=== PATIENT | female | born 1950 | race Caucasian/White ===

== ENCOUNTER → 2016-09-08 | Outpatient (CLI) | payer MEDICARE, OTHER ==
[~2016-09-08] MED LIST: ANTI INFLAMATORY; ANTIVERT 25MG25 MG PO; ASPIRIN 32325 MG/TAB PO; ASPIRIN 81M81 MG/TA2 PO; ASPIRIN E.C. 8181 MG PO; ATIVAN 1MG T1 MG/TAB PO; CELEBREX 200MG200 MG PO; CHANTIX1 TAB PO; COLACE 100100 MG/CAP PO; DICLOFENAC; FERROUS SU325 MG/TAB PO; FLEXERIL 1010 MG/TAB PO; FLONASE NASAL S16 GM NS; FOLIC ACID 40400 MCG PO; FOLIC ACID PO; LORTAB 5/500 501 TAB PO; MASON NATURAL2000 IU PO; MILK OF MA400 MG/52 PO; MUCINEX D 600 M1 TER PO; MUCINEX DM 30 M1 TE1 PO; MULTIPLE VITAMI1 TAB PO; MVI PO; NASONEX SPRAY17 GM NS; NICODERM C21 MG/PATC TOP; NORCO 325 MG-7.1 TAB PO; OXYCODONE HCL5 MG PO; PAXIL 20MG20 MG PO; PAXIL20 MG PO; PLAVIX 75MG TAB75 MG PO; PREMARIN 1.251.25 MG PO; PROAIR HFA0.09 MG/AC IH; ROXICODONE 55 MG/TAB PO; SENOKOT8.6 MG PO; TESSALON PERLE100 MG PO; VESICARE 5MG5 MG PO; VITAMIN C BUFF500 MG PO; VITAMIN C500 MG PO; VITAMIN D1000 IU PO; VOLTAREN 75 DR75 MG PO; VOLTAREN SR25 MG/TAB PO; ZOFRAN 4MG T4 MG/TAB PO; ZORVOLEX35 MG PO; ZYRTEC 10MG
== END ==
LOC: COL.RAD 08:34
DX: M25.552 Pain in left hip (principal); M79.605 Pain in left leg
CPT/HCPCS: J3301; Q9967

== ENCOUNTER → 2016-10-22 | Outpatient (CLI) | payer MEDICARE, OTHER | LOC: MC.RAD 09:47 | DX: Z12.31 Encounter for screening mammogram for malignant neoplasm of breast (principal) ==

== ENCOUNTER 2017-02-17 10:34 | Inpatient (IN) | payer MEDICARE, OTHER ==
[~2017-02-17] VITALS: Ht 160 cm; Wt 80.4 kg
[~2017-02-17 10:34] MED LIST changes: -ASPIRIN 81M81 MG/TA2 PO; -ASPIRIN E.C. 8181 MG PO; -FLONASE NASAL S16 GM NS; -MASON NATURAL2000 IU PO; -NASONEX SPRAY17 GM NS; -PLAVIX 75MG TAB75 MG PO; -PROAIR HFA0.09 MG/AC IH; -VOLTAREN SR25 MG/TAB PO
[2017-03-20] MEDS ORDERED: MASON NATURAL2000 IU PO (15:54)
[2017-03-20] MEDS ORDERED: ASPIRIN E.C. 8181 MG PO (15:54)
[2017-03-20] MEDS ORDERED: VOLTAREN SR25 MG/TAB PO (15:55)
[2017-03-20] MEDS ORDERED: VOLTAREN 75 DR75 MG PO (15:55)
[2017-03-20] MEDS ORDERED: NASONEX SPRAY17 GM NS (15:56)
[2017-03-20] MEDS ORDERED: PROAIR HFA0.09 MG/AC IH (15:56)
[2017-03-20] MEDS ORDERED: FLONASE NASAL S16 GM NS (15:56)
[2017-03-20] MEDS ORDERED: PLAVIX 75MG TAB75 MG PO (15:57)
[2017-03-24] VITALS (12 sets, daily range): BP systolic 94–123; BP diastolic 50–74; PULSE 73–102; TEMP 98.2–98.5
[2017-03-24] MEDS ORDERED: VITAMIN C500 MG PO (07:43)
[2017-03-24] MEDS ORDERED: FERROUS SU325 MG/TAB PO (07:43)
[2017-03-24] MEDS ORDERED: FOLIC ACID 40400 MCG PO (07:44)
[2017-03-25 04:40] VITALS: BP 120/70; PULSE 88; TEMP 98.4
[2017-03-25 05:29] LABS: HEMATOCRIT 32.1 % (37.0-47.0); HEMOGLOBIN 10.7 g/dl (12.5-16.0)
[2017-03-25 07:32] VITALS: BP 117/90; PULSE 92; TEMP 98.7
[2017-03-25 11:37] VITALS: BP 135/55; PULSE 89; TEMP 97.9
[2017-03-25] MEDS ORDERED: ASPIRIN 32325 MG/TAB PO (14:36)
[2017-03-25] MEDS ORDERED: ROXICODONE 55 MG/TAB PO (14:36)
[2017-03-25] MEDS ORDERED: NORCO 325 MG-7.1 TAB PO (14:37)
[2017-03-25] MEDS ORDERED: PLAVIX 75MG TAB75 MG PO (14:41)
== END 2017-03-25 15:19 | disposition home or self-care (01) | DRG 468 ==
LOC: JCC 03-24 06:35
PROVIDERS: Orthopaedic Surgery
PROC: 0SPS0JZ Removal of Synthetic Substitute from Left Hip Joint, Femoral Surface, Open Approach (ICD-10-PCS; 2017-03-24)
PROC: 0SRS0JA Replacement of Left Hip Joint, Femoral Surface with Synthetic Substitute, Uncemented, Open Approach (ICD-10-PCS; principal; 2017-03-24 11:45)
DX: T84.84XA Pain due to internal orthopedic prosthetic devices, implants and grafts, initial encounter (principal); T84.89XA Other specified complication of internal orthopedic prosthetic devices, implants and grafts, initial encounter; Z96.642 Presence of left artificial hip joint; Z85.72 Personal history of non-Hodgkin lymphomas
CPT/HCPCS: A4315; A9284; C1776; J0360; J0690; J1100; J2250; J2270; J2405; J2704; J3010; J7120

== ENCOUNTER → 2017-03-12 | Outpatient (CLI) | payer MEDICARE, OTHER ==
[~2017-03-12] MED LIST changes: +ASPIRIN 81M81 MG/TA2 PO; +ASPIRIN E.C. 8181 MG PO; +FLONASE NASAL S16 GM NS; +MASON NATURAL2000 IU PO; +NASONEX SPRAY17 GM NS; +PLAVIX 75MG TAB75 MG PO; +PROAIR HFA0.09 MG/AC IH; +VOLTAREN SR25 MG/TAB PO
[2017-03-12 10:57] LABS: HIV 1/2 Antibodies Non-Reactive; HIV-1p24 Antigen Non-Reactive
== END ==
LOC: COL.LAB 08:59
PROVIDERS: Orthopaedic Surgery
DX: Z01.812 Encounter for preprocedural laboratory examination (principal); Z96.642 Presence of left artificial hip joint

== ENCOUNTER 2017-04-05 19:14 | Emergency (ER) | payer MEDICARE, OTHER ==
[~2017-04-05] VITALS: Ht 157.5 cm; Wt 69.5 kg
[~2017-04-05 19:14] MED LIST changes: -ASPIRIN 81M81 MG/TA2 PO
[2017-04-05 19:18] VITALS: TEMP 98
[2017-04-05 20:00] LABS: BASO % 0.4 % (0.0-2.0); EOS # 0.2 (0.0-0.7); EOS % 2.3 % (0-4.0); GRAN # 6.4 (1.4-6.5); LYMPH # 2.5 (1.2-3.4); LYMPH % 25.2 % (20.0-51.0); MEAN CELL VOLUME 94 fl (80.0-100.0); MEAN CORPUSCULAR HGB CONC 33 g/dl (33.0-37.0); MONO # 0.6 (0.1-0.6); MONO % 6.4 % (1.7-9.3); PLATELET COUNT 386 K/mm3 (130-400); RED BLOOD COUNT 3.38 M/mm3 (4.10-5.30); WHITE BLOOD COUNT 9.9 K/mm3 (4.8-10.8)
[2017-04-05 20:04] LABS: HEMATOCRIT 31.8 % (37.0-47.0); HEMOGLOBIN 10.5 g/dl (12.5-16.0); MEAN CORPUSCULAR HEMOGLOBIN 31 pg (27.0-31.0)
[2017-04-05 20:13] LABS: ALBUMIN 3.9 gm/dL (3.5-5.0); BILIRUBIN,TOTAL 0.5 mg/dL (0.0-1.0); C-REACTIVE PROTEIN 2.5 mg/dL (0.0-0.9); CALCIUM 8.9 mg/dL (8.4-10.2); CREATININE, serum 0.7 mg/dL (0.52-1.25); POTASSIUM 4.3 mmol/L (3.4-5.0); TOTAL PROTEIN 6.5 gm/dL (6.4-8.2)
[2017-04-05 20:24] LABS: ERYTHROCYTE SEDIMENTATION RATE 29 mm/hr (0-30)
[2017-04-05] MEDS ORDERED: ASPIRIN 81M81 MG/TA2 PO (21:00)
[2017-04-05 22:29] VITALS: BP 116/65; PULSE 87
== END 2017-04-05 22:34 | disposition home or self-care (01) ==
LOC: COL.ER 19:14
PROVIDERS: Emergency Medicine
DX: G89.18 Other acute postprocedural pain (principal); M62.838 Other muscle spasm; Z85.72 Personal history of non-Hodgkin lymphomas; Z79.82 Long term (current) use of aspirin
CPT/HCPCS: J1170; J1885

== ENCOUNTER → 2017-10-21 | Outpatient (CLI) | payer MEDICARE, OTHER ==
[~2017-10-21] MED LIST changes: +ASPIRIN 81M81 MG/TA2 PO; +ZITHROMAX Z PA250 MG PO
[2017-10-21 11:34] LABS: HIV 1/2 Antibodies Non-Reactive; HIV-1p24 Antigen Non-Reactive
[2017-10-22 03:41] LABS: HEPATITIS B SURFACE ANTIBODY <2.0 (())
== END ==
LOC: COL.LAB 09:58
PROVIDERS: Orthopaedic Surgery
DX: Z01.812 Encounter for preprocedural laboratory examination (principal); Z96.642 Presence of left artificial hip joint

== ENCOUNTER → 2017-11-13 | Outpatient (CLI) | payer MEDICARE, OTHER ==
[~2017-11-13] MED LIST changes: +ALLEGRA 180MG180 MG PO; +ASPI325T6 PO; +DULCOLAX STOOL100 MG PO; +ESTRACE0.5 MG PO; +VENTOLIN0.09 MG IH; +WELLBUTRIN SR150 M1 PO
== END ==
LOC: MC.RAD 10-30 08:20
DX: Z12.31 Encounter for screening mammogram for malignant neoplasm of breast (principal)

== ENCOUNTER 2018-01-22 09:54 | Emergency (ER) | payer MEDICARE, OTHER ==
[~2018-01-22] VITALS: Ht 160 cm; Wt 68.2 kg
[2018-01-22 13:05] VITALS: BP 123/77; PULSE 75; TEMP 97.2
== END 2018-01-22 13:05 | disposition home or self-care (01) ==
LOC: COL.ER 09:54
DX: M24.452 Recurrent dislocation, left hip (principal); Z79.02 Long term (current) use of antithrombotics/antiplatelets; Z79.82 Long term (current) use of aspirin; Z79.51 Long term (current) use of inhaled steroids; X50.0XXA Overexertion from strenuous movement or load, initial encounter
CPT/HCPCS: J1170; J1885; J2405; J2704; J3010; J7120

== ENCOUNTER 2018-03-18 13:36 | Emergency (ER) | payer MEDICARE, OTHER ==
[~2018-03-18] VITALS: Ht 160 cm; Wt 68.2 kg
[2018-03-18 13:39] VITALS: TEMP 96.8
[2018-03-18 14:07] LABS: BASO % 0.4 % (0.0-2.0); EOS # 0.2 (0.0-0.7); EOS % 2.8 % (0-4.0); GRAN # 3.8 (1.4-6.5); GRAN % 56.4 % (42.2-75.2); HEMOGLOBIN 10.9 g/dl (12.5-16.0); LYMPH # 2.2 (1.2-3.4); LYMPH % 32.7 % (20.0-51.0); MEAN CELL VOLUME 86 fl (80.0-100.0); MEAN CORPUSCULAR HEMOGLOBIN 27 pg (27.0-31.0); MEAN CORPUSCULAR HGB CONC 32 g/dl (33.0-37.0); MEAN PLATELET VOLUME 9.5 fl (7.4-10.4); MONO # 0.5 (0.1-0.6); MONO % 7.6 % (1.7-9.3); PLATELET COUNT 273 K/mm3 (130-400); RED BLOOD COUNT 3.98 M/mm3 (4.10-5.30); REDCELL DISTRIBUTION WIDTH-CV 17.1 % (11.5-14.5)
[2018-03-18 14:09] LABS: HEMATOCRIT 34.1 % (37.0-47.0)
[2018-03-18 14:14] LABS: ALBUMIN 3.8 gm/dL (3.5-5.0); BILIRUBIN,TOTAL 0.2 mg/dL (0.0-1.0); CALCIUM 8.2 mg/dL (8.4-10.2); CREATININE, serum 0.84 mg/dL (0.52-1.25); POTASSIUM 4.2 mmol/L (3.4-5.0); TOTAL PROTEIN 6.4 gm/dL (6.4-8.2)
[2018-03-18 16:28] VITALS: BP 111/58; PULSE 65
== END 2018-03-18 16:36 | disposition home or self-care (01) ==
LOC: COL.ER 13:36
PROVIDERS: Family Medicine
DX: T84.021A Dislocation of internal left hip prosthesis, initial encounter (principal); I10 Essential (primary) hypertension; J44.9 Chronic obstructive pulmonary disease, unspecified; F17.210 Nicotine dependence, cigarettes, uncomplicated; Z98.890 Other specified postprocedural states; W18.39XA Other fall on same level, initial encounter
CPT/HCPCS: J2405; J2704; J7030

== ENCOUNTER → 2018-05-06 | Outpatient (REF) ==
[2018-05-06 13:45] LABS: COLLECTION METHOD CLEAN CATCH
[2018-05-06 13:54] LABS: MUCOUS Present /lpf; PH 6 (5-8); SQUAMOUS EPITHELIAL 0-2 /hpf; URINE APPEARANCE Clear; URINE BACTERIA Rare /hpf; URINE BILIRUBIN Negative (NEGATIVE); URINE BLOOD Negative (NEGATIVE); URINE COLOR Yellow; URINE GLUCOSE Negative (NEGATIVE); URINE KETONE Negative (NEGATIVE); URINE LEUKOCYTE ESTERASE Negative (NEGATIVE); URINE NITRATE Negative (NEGATIVE); URINE PROTEIN(semi-quant) Negative (NEGATIVE); URINE RBC 0-2 /hpf; URINE UROBILINOGEN Negative (NEGATIVE); URINE WBC 0-2 /hpf
== END ==
LOC: ZLAB.STJ 13:44
PROVIDERS: Family Medicine
DX: R82.90 Unspecified abnormal findings in urine (principal)

== ENCOUNTER → 2018-05-07 | Outpatient (CLI) | payer MEDICARE, OTHER | LOC: COL.RAD 15:29 | DX: M16.11 Unilateral primary osteoarthritis, right hip (principal); T84.091A Other mechanical complication of internal left hip prosthesis, initial encounter; Z96.642 Presence of left artificial hip joint; Z95.828 Presence of other vascular implants and grafts ==